=== PATIENT | male | born 1955 | race Two or more races ===

== ENCOUNTER 2024-09-14 20:04 | Emergency (ER) | payer OTHER, SELFPAY ==
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
[2024-09-14 20:41] VITALS: BP 181/80; PULSE 72; RESP 18; TEMP 37.2; O2SAT 99
== END 2024-09-14 21:45 | disposition home or self-care (01) ==
LOC: SERX 21:56
PROVIDERS: Emergency Provider Emergency Medicine; PCP Internal Medicine
DX: S01.01XA Laceration without foreign body of scalp, initial encounter (principal); E11.9 Type 2 diabetes mellitus without complications; I50.9 Heart failure, unspecified; E78.5 Hyperlipidemia, unspecified; E03.9 Hypothyroidism, unspecified; N40.0 Benign prostatic hyperplasia without lower urinary tract symptoms; W22.8XXA Striking against or struck by other objects, initial encounter; Y92.810 Car as the place of occurrence of the external cause
CPT/HCPCS: 12002; 99283

== ENCOUNTER 2024-09-25 11:38 | Emergency (ER) | payer OTHER, SELFPAY ==
[2024-09-25 11:57] VITALS: BP 170/73; PULSE 88; RESP 18; TEMP 36.9; O2SAT 99; BMI 29.2
--- NOTE | 2024-09-25 12:00 | PD.EDADULT ---
ED General RME/HPI General Chief complaint: General Adult/Misc Complain Stated complaint: STAPLE REMOVAL ON TOP OF HEAD Time Seen by Provider: 09/25/24 11:41 Arrival date/time: 09/25/24 11:38 68-year-old male presents emergency department today for staple removal patient has 4 malini to his scalp patient reports no discharge no pain Limitations: no limitations Related Data Home Medications ?Medication ?Instructions ?Recorded ?Confirmed levothyroxine 25 mcg capsule 100 mcg PO QDAY 06/26/18 03/15/23 insulin glargine 100 unit/mL 30 unit subcut QPM 06/27/18 03/15/23 subcutaneous solution (Lantus U-100 Insulin) atorvastatin 10 mg tablet 10 mg PO QDAY 06/18/22 03/15/23 calcium acetate(phosphat bind) 667 1,334 mg PO TID 03/15/23 03/15/23 mg(169 mg calcium)/5 mL oral soln (Phoslyra) carvedilol 6.25 mg tablet 6.25 mg PO BID 03/15/23 03/15/23 cetirizine 10 mg tablet 10 mg PO QDAY 03/15/23 03/15/23 sacubitril 24 mg-valsartan 26 mg 1 tab PO BID 03/15/23 03/15/23 tablet (Entresto) sitagliptin phosphate 100 mg 100 mg PO QDAY 03/15/23 03/15/23 tablet (Januvia) tamsulosin 0.4 mg capsule 0.4 mg PO QDAY 03/15/23 03/15/23 vitamin B complex-vitamin C-folic 1 tab PO QDAY 03/15/23 03/15/23 acid 0.8 mg tablet (Liliane-Dea) Previous Rx's ?Medication ?Instructions ?Recorded furosemide 20 mg tablet (Lasix) 40 mg (2 x 20 mg) PO DAILY #60 tabs 08/23/22 Allergies Allergy/AdvReac Type Severity Reaction Status Date / Time No Known Allergies Allergy Verified 09/25/24 11:39 Review of Systems Review of Systems Systems Reviewed: All systems reviewed, normal except as documented Constitutional Constitutional: Reports system reviewed and no additional complaints, except as documented, Denies fever(s) and Denies headache(s) Eyes Eyes: Reports system reviewed and no additional complaints, except as documented and Denies blurry vision ENT Ears, Nose, Mouth, and Throat: Reports system reviewed and no additional complaints, except as documented, Denies headache(s), Denies nasal congestion and Denies nasal discharge Cardiovascular Cardiovascular: Reports system reviewed and no additional complaints, except as documented, Denies chest pain and Denies dyspnea Respiratory Respiratory: Reports system reviewed and no additional complaints, except as documented, Denies chest congestion, Denies cough and Denies dyspnea Gastrointestinal Gastrointestinal: Reports system reviewed and no additional complaints, except as documented and Denies abdominal pain Integumentary/Breasts Skin/Breast: Reports system reviewed and no additional complaints, except as documented, Denies rash and Reports wounds (Staple scalp) Neurologic Neurologic: Reports system reviewed and no additional complaints, except as documented, Reports as per HPI and Denies headache(s) Past Medical History Past Medical History NEUROLOGIC: Negative Neurological Disorders or Seizures CARDIAC: Positive Cardiac Disorders, Myocardial Infarction (28 yrs ago), Coronary Artery Disease, Hypercholesterolemia, Congestive Heart Failure and Hypertension RESPIRATORY: Positive Bronchitis and Pneumonia; Negative Chronic Obstructive Pulmonary Disease (COPD) GASTROINTESTINAL: Negative Gastrointestinal Disorders or Hepatitis GENITOURINARY: Positive Genitourinary Disorders, Renal Disease, Dialysis (Tue/Thr/Sat) and Benign Prostatic Hyperplasia MUSCULOSKELETAL: Positive Musculoskeletal Disorders and Arthritis ENDOCRINE: Positive Endocrine Disorders, Diabetes Mellitus Type 2 and Hypothyroidism; Negative Diabetes Mellitus Type 1 HEMATOLOGIC: Negative Blood Disorders OTHER HISTORY: Positive Hospitalization (CHF, Kidney) and Falls; Negative Autoimmune Disease, Shingles, Blood Transfusions, Blood Transfusion Reaction, Anesthesia Reactions, Organ Transplant, MRSA, VRSA, Vancomycin-Resistant Enterococci, Chicken Pox or Cancer Family History FAMILY HISTORY: Positive Family Respiratory Disorders, Family Cardiac Disorders and Family Surgery; Negative Family Psychiatric Problems, Family Gastrointestinal Problems, Family Cancer or Family Anesthesia Reaction Surgical History SURGICAL: Negative Endocrine Surgery, Ear Surgery, Abdominal Surgery, Nephrectomy, Joint Replacement, Neurologic Surgery, Vasectomy or Organ Transplant Social History SMOKING STATUS: Never smoker ED Exam General Limitations: Present no limitations General appearance: Present alert and in no apparent distress Head Head exam: Present other (Stable scalp) Eye Eye exam: Present normal appearance, PERRL and EOMI ENT ENT exam: Present normal exam, normal oropharynx and mucous membranes moist Neck Neck exam: Present normal inspection, full ROM and trachea midline Chest Chest inspection: Present normal inspection and symmetric chest wall rise Respiratory Respiratory exam: Present normal lung sounds bilaterally Cardiovascular Cardiovascular exam: Present regular rate, normal rhythm and normal heart sounds Abdominal Exam Abdominal exam: Present soft and normal bowel sounds Extremities Exam Extremities exam: Present normal inspection and full ROM Back Exam Back exam: Present normal inspection and full ROM Neurological Exam Neurological exam: Present alert, oriented X3 and CN II-XII intact Psychiatric Psychiatric exam: Present normal affect and normal mood Skin Skin exam: Present warm, dry, intact and normal color Course Quality Measures none Vital Signs Vital signs: Vital Signs Temperature 98.5 F 09/25/24 11:57 Pulse Rate 88 09/25/24 11:57 Respiratory Rate 18 09/25/24 11:57 Blood Pressure 170/73 H 09/25/24 11:57 Pulse Oximetry (%) 99 09/25/24 11:57 Oxygen Delivery Method Room Air 09/25/24 11:57 O2 saturation 99% room air within the limits MDM Patient data External records reviewed:: [facility] previous records Clinical information provided by:: patient Social determinants that could affect healthcare access:: none Patient has the following chronic illnesses:: None How is presenting disease/condition affected by chronic disease/condition?: no chronic disease Evaluation data The following diagnostics were reviewed and interpreted by me:: other (specify) (N/A) Lab and/or radiology exams considered but not ordered:: consider not ordered Interpretation Summary: N/A Medications Medications considered but not ordered:: No meds Medication administrations:: No meds Consultations Consultation(s) initiated? (list below): No Diagnosis Differential Diagnosis ED Complaint MDM: Encounter for suture removal, encounter for staple removal Most likely diagnosis given after review of the tests above:: Staple removal Admission Indicated Admission indicated?: not indicated Explain why admission is indicated or not indicated:: No criteria Admission Request Was there a request for admission?: No Disposition Plan Disposition Plan: Discharge Discharge Attestation Discharge Attestation: The patient and all family members were given an opportunity to ask questions and understood the discharge instructions. Discharge instructions specifically effects, indications for sooner follow up or return to the emergency department, and the expected course of current diagnosis. Patient condition: Stable Medical Decision Making [facility] Narrative MDM Narrative: 68-year-old male presents emergency department today for staple removal patient has 4 malini to his scalp patient reports no discharge no pain On exam patient well-appearing patient is not appear ill or toxic in no acute distress On exam patient does have malini to his scalp no evidence of infection no discharge no pain Patient discharged home in no distress to follow-up with primary care doctor in the next 24 to 48 hours and for any worsening symptoms to return to the ER immediately Differential Diagnosis Differential Diagnosis: Encounter for suture removal, encounter for staple removal Medical Records Medical records reviewed: Yes I reviewed the patient's medical records. Discharge Plan Plan Patient Disposition: HOME (Self Care) Disposition Comment: Stable Prescriptions/Referrals Prescriptions/Med Rec: No Action levothyroxine 25 mcg Capsule 100 mcg PO QDAY insulin glargine [Lantus U-100 Insulin] 100 unit/mL Solution 30 unit SUBCUT QPM Protocol: Insulin Corrective High-Dose Regimen Condition: Fingerstick Blood Glucose Dose/Route: Insulin Units Condition: 141-180 mg/dl Dose/Route: 6 units/SQ Condition: 181-220 mg/dl Dose/Route: 8 units/SQ Condition: 221-260 mg/dl Dose/Route: 10 units/SQ Condition: 261-300 mg/dl Dose/Route: 12 units/SQ Condition: 301-350 mg/dl Dose/Route: 14 units/SQ Condition: 351-400 mg/dl Dose/Route: 16 units/SQ Condition: greater than 400 mg/dl Dose/Route: 18 units/SQ Rx Instructions: Pt only takes this med depanding on BS level. atorvastatin 10 mg tablet 10 mg PO QDAY Patient Comments: TAKE 1 TABLET ORALLY ONCE A DAY FOR CHOLESTEROL 90 DAY(S) carvedilol 6.25 mg Tablet 6.25 mg PO BID Rx Instructions: must administer with a meal/food cetirizine 10 mg Tablet 10 mg PO QDAY tamsulosin 0.4 mg Capsule 0.4 mg PO QDAY Liliane-Dea 0.8 mg Tablet 1 tab PO QDAY Januvia 100 mg Tablet 100 mg PO QDAY Phoslyra 667 mg (169 mg calcium)/5 mL Solution 1,334 mg PO TID Entresto 24-26 mg Tablet 1 tab PO BID furosemide [Lasix] 20 mg Tablet 40 mg PO DAILY Qty: 60 0RF Rx Instructions: Pt states that he take this medication now TID. MWF As instructed by emilee WHITE Problem List Clinical Impression: Removal of malini Patient/Caregiver Discharge Instructions Education Materials: ED Stitches/Staple Removal No ... Additional Instructions: Please follow up with your primary care doctor in the next 24-48hrs for any worsening symptoms return here immediately Print Language: Palestinian Stand Alone Forms: Stefani Award Info., Patient Portal Info Letter PA/AVIONICS INSTALLER Supervising Physician PA/AVIONICS INSTALLER Supervising Physician: Dr villalta
== END 2024-09-25 12:17 | disposition home or self-care (01) ==
LOC: SERX 12:05
PROVIDERS: Emergency Provider Family Medicine
DX: Z48.02 Encounter for removal of sutures (principal)
CPT/HCPCS: 99281

== ENCOUNTER → 2024-10-07 | Outpatient (CLI) | payer OTHER, SELFPAY ==
--- NOTE | 2024-10-07 09:51 | XR_ITS ---
Examination: Lumbar spine, 5 views Technique: Lumbar spine AP, lateral, coned lateral lower lumbar spine, bilateral obliques 5 views Exam date and time: October 07, 2024 1011 hours INDICATIONS: Low back pain 3 weeks FINDINGS: Severe osteopenia Calcifications overlying both kidneys Moderate diffuse facet arthropathy No lumbar fracture Mild to moderate degenerative disc disease L5-S1 No spondylolisthesis IMPRESSION: Mild to moderate degenerative disc disease L5-S1
== END | disposition home or self-care (01) ==
PROVIDERS: Referring Provider Internal Medicine; Visit Provider Internal Medicine
DX: M51.379 Other intervertebral disc degeneration, lumbosacral region without mention of lumbar back pain or lower extremity pain (principal)
CPT/HCPCS: 72110

== ENCOUNTER → 2025-01-20 | Outpatient (CLI) | payer OTHER, SELFPAY ==
[2025-01-20 11:22] LABS: Glucose Estimated Average 97 mg/dL (80-131); Hemoglobin A1C 5.0 % Hgb (4.8-6.0)
[2025-01-20 11:37] LABS: Basophils # (Auto) 0.0 Thou/mm3 (0.0-0.2); Basophils % (Auto) 1 % (0-2.5); Eosinophils # (Auto) 0.3 Thou/mm3 (0.0-0.5); Eosinophils % (Auto) 5 % (0-10); Hematocrit 32.8 % (41.0-53.0); Hemoglobin 11.0 g/dL (13.5-16.0); Immature Granulocytes Auto 0.02 Thou/mm3 (0.00-0.00); Lymphocytes # (Auto) 1.1 Thou/mm3 (1.0-4.8); Lymphocytes % (Auto) 17 % (10-50); Mean Corpuscular HGB Conc 33.5 g/dl (31.0-37.0); Mean Corpuscular Hemoglobin 31.1 pg (25.0-35.0); Mean Corpuscular Volume 93 fL (80-100); Monocytes # (Auto) 0.4 Thou/mm3 (0.0-0.8); Monocytes % (Auto) 6 % (0-12); Neutrophils # (Auto) 4.5 Thou/mm3 (1.8-7.7); Neutrophils % (Auto) 71 % (37-80); Nucleated Red Blood Cell # 0.00 Thou/mm3 (0.00-0.00); Nucleated Red Blood Cell % 0 /100 WBC (0); Platelet Count 110 Thou/mm3 (140-440); RDW Standard Deviation 46.4 fL (35.1-43.9); Red Blood Count 3.54 Miln/mm3 (4.50-5.90); White Blood Count 6.4 Thou/mm3 (3.8-10.6)
[2025-01-20 11:47] LABS: Alanine Aminotransferase < 7 U/L (10-49); Albumin, Serum 4.0 gm/dL (3.4-4.8); Alkaline Phosphatase 88 U/L (46-116); Anion Gap 10 (7-16); Aspartate Amino Transferase < 8 U/L (0-34); BUN/Creatinine Ratio 5 Ratio (12-20); Bilirubin,Direct 0.1 mg/dL (0.0-0.3); Bilirubin,Total 0.4 mg/dL (0.3-1.2); Blood Urea Nitrogen 35 mg/dL (9-23); Calcium 8.6 mg/dL (8.3-10.6); Carbon Dioxide 29.2 mMol/L (20.0-31.0); Cardiac Risk Estimate 2.4 RATIO (4.0-6.7); Chloride 104 mMol/L (98-107); Cholesterol 95 mg/dL (132-200); Creatinine (Component) 6.8 mg/dL (0.6-1.3); Free T4 (Free Thyroxine) 0.95 ng/dL (0.89-1.76); Glucose 122 mg/dL (74-106); HDL Cholesterol 40 mg/dL (40-60); LDL Cholesterol,Calculated 44 mg/dL (0-130); Osmolality,Calculated 293 (275-295); Potassium 4.3 mMol/L (3.4-5.1); Sodium 143 mMol/L (136-145); Thyroid Stimulating Hormone 16.06 uIU/mL (0.55-4.78); Total Protein 6.4 gm/dL (5.7-8.2); Triglycerides 57 mg/dL (30-150); eGFR 8 See Note
== END | disposition home or self-care (01) ==
LOC: COPL 09:54
PROVIDERS: PCP Internal Medicine; Referring Provider Internal Medicine Cardiovascular Disease; Visit Provider Internal Medicine Cardiovascular Disease
DX: I10 Essential (primary) hypertension (principal); E07.9 Disorder of thyroid, unspecified; E78.5 Hyperlipidemia, unspecified; E11.65 Type 2 diabetes mellitus with hyperglycemia
CPT/HCPCS: 36415; 80048; 80061; 80076; 83036; 84439; 84443; 85025

== ENCOUNTER → 2025-04-04 | Outpatient (CLI) | payer OTHER, SELFPAY ==
[2025-04-04 09:43] LABS: Free T4 (Free Thyroxine) 1.04 ng/dL (0.89-1.76); Thyroid Stimulating Hormone 20.86 uIU/mL (0.55-4.78)
[2025-04-04 09:46] LABS: PSA Medicare Annual Scrn 0.78 ng/mL (0-4.00)
== END | disposition home or self-care (01) ==
LOC: COPL 08:40
PROVIDERS: PCP Internal Medicine; Referring Provider Internal Medicine Cardiovascular Disease; Visit Provider Internal Medicine Cardiovascular Disease
DX: E03.9 Hypothyroidism, unspecified (principal); I10 Essential (primary) hypertension
CPT/HCPCS: 36415; 84153; 84439; 84443; G0103

== ENCOUNTER → 2025-05-27 | Outpatient (CLI) | payer OTHER, SELFPAY ==
--- NOTE | 2025-05-27 15:30 | XR_ITS ---
Examination: CT chest, without intravenous contrast. Sagittal and coronal 2-D reconstructions. Exam date and time: May 27, 2025, 1445 hours INDICATION: Coughing 5 months CTDI:vol (mGy) 11.2 DLP: (mGycm) 377 Technique: Multiple 3.0 mm axial sections of the chest to been obtained. Bone and lung density settings are obtained. Sagittal and coronal 2-D reconstructions have been obtained. Low dose protocols were performed. One or more of the following dose reduction techniques were used; automated exposure control, adjustment of the mA and/or KV according to patient size, use of iterative reconstruction technique. Findings: No thoracic aortic aneurysm dilatation Subcentimeter precarinal lymph nodes Pulmonary artery segment not enlarged Mild calcification left main and left anterior descending coronary artery Mild enlargement cardiac contour with trace pericardial thickening Prominent vascular congestion with septal pulmonary edema Minimal bilateral pleural fluid Pulmonary nodule right apex 22 mm 6 mm pulmonary nodule right upper lobe image 54 Thick-walled cavitary lesion posterior right upper lobe, 15 mm, image 63 5 mm pulmonary nodule right lower lobe image 69 No visualized liver or splenic lesions No gallstones No pancreatic or adrenal mass Atrophic kidneys partially visualized including end-stage calcified atrophic right kidney IMPRESSION: Mild CHF Multiple pulmonary masses including 15 mm thick-walled cavitary lesion posterior right upper lobe Differential would include infectious processes including tuberculosis as well as pulmonary nodular metastatic disease, clinical correlation advised
== END | disposition home or self-care (01) ==
PROVIDERS: PCP Internal Medicine; Referring Provider Internal Medicine; Visit Provider Internal Medicine
DX: I50.9 Heart failure, unspecified (principal); R91.8 Other nonspecific abnormal finding of lung field
CPT/HCPCS: 71250